=== PATIENT | female | born 1955 | race Caucasian/White ===

== ENCOUNTER 2021-07-06 21:18 | Emergency (ER) | payer OTHER ==
[2021-07-07 04:09] LABS: BASOPHIL 0.6 % (0-2); EOSINOPHIL 2.5 % (0-5); HCT 34.1 % (37.0-47.0); HGB 10.9 g/dl (12.5-16.0); LYMPHOCYTE 13.1 % (15-48); MCH 29.8 pg (25.0-31.0); MCV 93.2 fL (78.0-100.0); MONOCYTE 10.2 % (0-12); MPV 10.6 fL (6.0-9.5); NEUTROPHIL 73.2 % (41-80); NRBC 0; PLT 276 K/uL (150-400); RBC 3.66 M/uL (4.20-5.40); WBC 8.5 K/uL (4.0-10.5)
[2021-07-07 04:18] LABS: BILIRUBIN NEGATIVE (NEGATIVE); BLOOD TRACE-INTACT Ery/uL (NEGATIVE); COLOR YELLOW (YELLOW); GLUCOSE (U) NORMAL (NORMAL); LEUKOCYTES NEGATIVE Leu/uL (NEGATIVE); NITRITE NEGATIVE (NEGATIVE); PROTEIN 1+ mg/dL (NEGATIVE); SPECIFIC GRAVITY >=1.030 (1.001-1.030); UROBILINOGEN 0.2 mg/dL (0.2-1.0)
[2021-07-07 04:25] LABS: CLARITY SLIGHTLY HAZY (CLEAR)
[2021-07-07 04:26] LABS: BACTERIA TRACE
[2021-07-07 04:27] LABS: MUCOUS TRACE
[2021-07-07 04:31] LABS: ALBUMIN 3.4 g/dL (3.4-5.0); BILIRUBIN - TOTAL 0.3 mg/dL (0.2-1.0); BUN/CREAT RATIO (CALC) 15.5 RATIO; CREATININE 0.84 mg/dL (0.51-0.95); GLOBULIN (CALCULATION) 3.8 g/dL; POTASSIUM 4.2 mmol/L (3.5-5.1); TOTAL PROTEIN 7.2 g/dL (6.4-8.2)
[2021-07-07] MEDS ORDERED: LIDOCAINE 5% P1 EACH TOP (06:40)
[2021-07-07] MEDS ORDERED: FLEXERIL5 MG PO (06:40)
== END 2021-07-07 09:12 | disposition home or self-care (01) ==
LOC: FER 21:18
PROVIDERS: Emergency Medicine
DX: R07.89 Other chest pain (principal); I25.10 Atherosclerotic heart disease of native coronary artery without angina pectoris; E11.9 Type 2 diabetes mellitus without complications
CPT/HCPCS: 36415; 71045; 80053; 81001; 83690; 84484; 85025; 87088; 93005; J1885